=== PATIENT | male | born 1975 | race Caucasian/White ===

== ENCOUNTER 2019-01-05 10:07 | Observation (INO) | payer OTHER ==
[2019-01-05] VITALS (11 sets, daily range): BP systolic 128–144; BP diastolic 74–86; PULSE 58–89; TEMP 97–98.1
[~2019-01-05] VITALS: Ht 185.4 cm; Wt 107.6 kg
[2019-01-05 11:13] LABS: MAGNESIUM 1.9 mg/dL (1.6-2.3)
[2019-01-05 11:26] LABS: TROPONIN-I < 0.012 ng/mL (0.000-0.035)
[2019-01-05 12:21] LABS: HEMATOCRIT 43.7 % (42.0-52.0); HEMOGLOBIN 14.5 g/dl (13.5-18.0); MEAN CELL VOLUME 89 fl (80.0-100.0); MEAN CORPUSCULAR HEMOGLOBIN 30 pg (27.0-31.0); MEAN CORPUSCULAR HGB CONC 33 g/dl (33.0-37.0); MEAN PLATELET VOLUME 9.8 fl (7.4-10.4); PLATELET COUNT 270 K/mm3 (130-400); RED BLOOD COUNT 4.89 M/mm3 (4.20-5.60); REDCELL DISTRIBUTION WIDTH-CV 12.7 % (11.5-14.5)
[2019-01-05 12:26] LABS: CALCIUM 9.7 mg/dL (8.4-10.2); CREATININE, serum 0.78 (0.66-1.25); POTASSIUM 4.8 mmol/L (3.4-5.0)
[2019-01-05 12:29] LABS: INR 0.9 (0.8-3.0)
[2019-01-05 12:47] LABS: PARTIAL THROMBOPLASTIN TIME 40.8 SECONDS (26.0-37.0)
--- NOTE | 2019-01-05 13:45 | NUR ---
SEE [facility] FOR MEDICATION ADMINISTRATION TIMES AND INTRA/POST SEDATION ASSESSMENT.
[2019-01-05] MEDS ORDERED: CYMBALTA 30MG30 MG PO (15:28)
[2019-01-05] MEDS ORDERED: AMITRIPTYLINE H25 M1 PO (15:29)
[2019-01-05] MEDS ORDERED: MOBIC15 MG PO (15:30)
[2019-01-05] MEDS ORDERED: PROTONIX 40MG T40 MG PO (15:30)
[2019-01-05] MEDS ORDERED: NEXIUM 40MG40 MG PO (15:31)
--- NOTE | 2019-01-05 18:58 | NUR ---
Pt resting in room, no C/O chest pain just has some discomfort at the cath site on right wrist, VS have been stable since returing to floor. 3ml has been removed from the wrist compression band.
--- NOTE | 2019-01-05 20:00 | NUR ---
RELEASES 4 ML FROM RIGHT RADIAL BAND AT THIS TIME. NO NEW DRAINAGE NOTED. WILL CONTINUR TO MONITOR.
--- NOTE | 2019-01-05 20:39 | NUR ---
RELEASED 4ML AT THIS TIME. MINIMAL AIR LEFT IN BAND- WILL CONTINUE TO MINITOR RADIAL SITE. MINIMAL DISCONFORT NOTED. NO NEEDS AT THIS TIME.
--- NOTE | 2019-01-05 21:00 | NUR ---
possible leakage- this nurse replaced 3ml- reassessed in 15 mins. decided no active bleeding. released 3ml. continue to monitor.
--- NOTE | 2019-01-05 21:45 | NUR ---
remaining of air released from right radial band. no active bleeding noted. education provided- "if you see any bleeding, please come back to the hospital." minimal discomfort reported. no needs. no questions. removed iv- catheter tip intact. will be assisted to exit by nursing assitant.
--- NOTE | 2019-01-05 22:20 | NUR ---
pt left at this time. assited ti exit with nursing staff
== END 2019-01-05 22:20 | disposition home or self-care (01) ==
LOC: SURG 10:07 → MEDICAL 10:23
PROVIDERS: Nurse Practitioner; Physician Assistant; ADMIT Student in an Organized Health Care Education/Training Program
DX: R07.89 Other chest pain (principal); K21.9 Gastro-esophageal reflux disease without esophagitis; F41.9 Anxiety disorder, unspecified; F43.10 Post-traumatic stress disorder, unspecified; F17.210 Nicotine dependence, cigarettes, uncomplicated; Z82.49 Family history of ischemic heart disease and other diseases of the circulatory system; Z83.3 Family history of diabetes mellitus; Z91.018 Allergy to other foods
CPT/HCPCS: C1769; G0378; G0379; J1644; J2250; J3010; Q9967